=== PATIENT | female | born 1970 | race Caucasian/White ===

== ENCOUNTER 2021-11-19 10:43 | Outpatient (CLI) | payer BC | END 2021-11-19 10:44 | disposition home or self-care (01) | LOC: LABBT 10:43 | PROVIDERS: ATTEND Specialist | DX: Z01.812 Encounter for preprocedural laboratory examination (principal); J35.1 Hypertrophy of tonsils; G47.33 Obstructive sleep apnea (adult) (pediatric); Z20.822 Contact with and (suspected) exposure to COVID-19 | CPT/HCPCS: 85014; 87811; 93005; 93010 ==

== ENCOUNTER 2021-11-21 08:35 | Day surgery (SDC) | payer BC ==
[2021-11-19 16:01] VITALS: BMI 27.0
[2021-11-21] MEDS ORDERED: Lidocaine 1% MPF 2 ML VIAL ONE (09:20)
[2021-11-21] MEDS ORDERED: Ferric Subsulfate (ASTRINGYN) 8 GM VIAL ONE (10:05)
[2021-11-21] MEDS ORDERED: fentaNYL Citrate/PF 100 MCG/2 ML SYRINGE ONE (10:06)
[2021-11-21] MEDS ORDERED: Scopolamine 1.5 mg/72 hour Patch ONE (10:11)
[2021-11-21] MEDS ORDERED: Midazolam HCl 2 mg/2 ml Vial ONE (10:23)
[2021-11-21] MEDS ORDERED: Glycopyrrolate 0.2 MG/ML 5 ML SYRINGE ONE (10:27)
[2021-11-21] MEDS ORDERED: Ondansetron PF 4 MG/2 ML Vial ONE (10:27)
[2021-11-21] MEDS ORDERED: PROPOFOL 200 MG/20 ML VIAL ONE (10:27)
[2021-11-21] MEDS ORDERED: Dexamethasone 20 MG/5 ML VIAL ONE (10:27)
[2021-11-21] MEDS ORDERED: NEOSTIGMINE 3 MG/3 ML SYR 3 MG/3 ML SYRINGE ONE (10:27)
[2021-11-21] MEDS ORDERED: Rocuronium Bromide 10 MG/ML (10ML VIAL) ONE (10:27)
[2021-11-21] MEDS ORDERED: Fentanyl 100 MCG/2 ML VIAL ONE ×2 (11:10→11:49)
[2021-11-21] MEDS ORDERED: Hydrocodone-Acetamin 15 ML UDCUP ONE (12:47)
== END 2021-11-21 13:19 | disposition home or self-care (01) ==
LOC: SDC 08:35
PROVIDERS: ATTEND Specialist
PROC: 0CTPXZZ Resection of Tonsils, External Approach (ICD-10-PCS; principal; 2021-11-21)
PROC: 0CTNXZZ Resection of Uvula, External Approach (ICD-10-PCS; principal; 2021-11-21)
DX: J35.01 Chronic tonsillitis (principal); K13.79 Other lesions of oral mucosa; G47.33 Obstructive sleep apnea (adult) (pediatric); I10 Essential (primary) hypertension; H81.12 Benign paroxysmal vertigo, left ear; G44.209 Tension-type headache, unspecified, not intractable; Z86.16 Personal history of COVID-19; Z79.899 Other long term (current) drug therapy; Z88.8 Allergy status to other drugs, medicaments and biological substances
CPT/HCPCS: 88304; J1100; J2250; J2405; J2704; J3010